=== PATIENT | female | born 1980 | race Caucasian/White ===

== ENCOUNTER → 2021-06-27 | Outpatient (CLI) | payer OTHER | LOC: RAD 12:00 | DX: Z09 Encounter for follow-up examination after completed treatment for conditions other than malignant neoplasm (principal); Z86.16 Personal history of COVID-19 | CPT/HCPCS: 71046 ==

== ENCOUNTER → 2022-02-23 | Outpatient (CLI) | payer OTHER | LOC: KOH-I 15:41 | DX: M25.551 Pain in right hip (principal); M25.571 Pain in right ankle and joints of right foot | CPT/HCPCS: 72170; 73502; 73610 ==